=== PATIENT | male | born 1990 | race Caucasian/White ===

== ENCOUNTER 2017-07-02 06:19 | Emergency (ER) | payer BC, MEDICAID ==
[~2017-07-02] VITALS: Ht 182.9 cm; Wt 110.4 kg
[2017-07-02 06:21] VITALS: BP 128/79
== END 2017-07-02 07:14 | disposition home or self-care (01) ==
LOC: ED 06:50
DX: K04.7 Periapical abscess without sinus (principal); H61.23 Impacted cerumen, bilateral
CPT/HCPCS: 99283

== ENCOUNTER 2017-08-31 20:18 | Emergency (ER) | payer BC, MEDICAID ==
[~2017-08-31] VITALS: Ht 182.9 cm; Wt 109.9 kg
[2017-08-31 20:20] VITALS: BP 133/82
[2017-08-31] MEDS ORDERED: BUPR1FIL3 SL (20:30)
[2017-08-31] MEDS ORDERED: BUPR1FIL7 SL (20:30)
== END 2017-08-31 20:44 | disposition home or self-care (01) ==
LOC: ED 20:25
DX: K02.9 Dental caries, unspecified (principal); F17.210 Nicotine dependence, cigarettes, uncomplicated
CPT/HCPCS: 99283

== ENCOUNTER 2018-03-10 00:52 | Emergency (ER) | payer BC, MEDICAID ==
[~2018-03-10] VITALS: Ht 182.9 cm; Wt 100.0 kg
[~2018-03-10 00:52] MED LIST: BUPR1FIL3 SL; BUPR1FIL7 SL
[2018-03-10 00:53] VITALS: BP 137/85
== END 2018-03-10 02:15 | disposition home or self-care (01) ==
LOC: ED 02:09
DX: L02.413 Cutaneous abscess of right upper limb (principal); L02.414 Cutaneous abscess of left upper limb; F17.200 Nicotine dependence, unspecified, uncomplicated; F14.10 Cocaine abuse, uncomplicated
CPT/HCPCS: 99283